=== PATIENT | male | born 1950 | race Caucasian/White ===

== ENCOUNTER 2023-11-23 23:10 | Emergency (ER) | payer OTHER, SELFPAY ==
[2023-11-23 23:15] VITALS: BP 169/85
--- NOTE | 2023-11-24 01:03 | ED.MUSCINJ ---
HPI-Injury
General
Chief Complaint: Musculo-Skeletal Complaint
Source: patient
Exam Limitations: none
Time Seen by Provider: 11/24/23 00:52
Travel History
Have you had any contact with someone who has COVID-19?: No
Do you have any symptoms of coronavirus? Fever > 100 degrees, chills, cough, shortness of breath, sore throat, loss of taste or smell, muscle aches, or headache?: No
History of Present Illness-Injury
Is this injury a work related problem?: No
Is pt an associate of [facility]?: No
Initial Injury comments:
This is a 73 year old male that comes in with c/o right shoulder pain. States shat he was gardening and worked on 4 beds. States that he was weeding and using a small trowel. States that he also lifted 6 bunches of Irises. Then tonight he was
twirling his spaghetti and that was when he started with pain. States that he didn't have pain after the gardening. Denies any falls, fever, chills, chest pain, SOB, nausea, vomiting, diarrhea, headache, dizziness.
Past History
Past History
ED Past Medical History: Hypercholesterolemia
ED Past Surgical History: Tonsilectomy and Urological (Lithotripsy )
Social History
Tobacco: Non-smoker
Alcohol: Daily (Wine 2)
Personal:
Living: with family
Review of Systems
Review of Systems
All Other Systems: ROS reviewed and negative except as documented in HPI and ROS
Constitutional: Reports no symptoms; Denies fever or chills
EENT: Reports no symptoms
Respiratory: Reports no symptoms; Denies cough or trouble breathing
Cardiac: Reports no symptoms; Denies chest pain
ABD/GI: Reports no symptoms; Denies abdominal pain, nausea, vomiting or diarrhea
: Reports no symptoms; Denies dysuria or frequency
Musculoskeletal: Reports joint pain (Right shoulder pain)
Skin: Reports no symptoms
Neurological: Reports no symptoms
Psychiatric: Reports no symptoms
Musculoskeletal Injury Exam
Musculoskeletal Injury Exam
Right Lateral Shoulder:
Pain with Movement?: Moderate
Tender to palpation?: Moderate
Soft tissue swelling?: None
External deformity and angulation?: None
Joint effusion?: None
Contusion?: None
Hematoma-local bleeding into tissue?: None
Strain- Sprain- Tear (Connective tissue injury)?: None
Crepitus with movement?: No
Joint instability?: No
Malalignment/deformity?: No
Range of motion: Limited (Due to pain)
Distal skin color and temperature: normal-warm & good color
Capillary Refill: normal
Normal distal neurovascular exam?: Yes
Phy Exam
General Physical Exam
General Presentation: well appearing and no apparent distress
General age: appears stated age
General Skin: warm and dry
General Habitus: elderly
General Mental: alert
General Hydration: appears well hydrated
ENT Exam
ENT Exam: TM's normal, pharynx normal and neck supple
Eye Exam
Eye Exam: EOMI
Cardiovascular Exam
Cardiovascular Exam: regular rate/rhythm and normal peripheral pulses
Musculoskeletal Exam
Musculoskeletal Exam: other (Right shoulder tenderness with palpation over the deltoid muscle. Limited ROM, Unable to abduct. Discomfort with flexion of the elbow. )
Skin Exam
Skin Exam: normal color, warm/dry, no rash and no petechia
Psychiatric Exam
Psychiatric Exam: normal mood/affect
Injury Course
Orders/Labs/Results
Orders:
Orders
11/23/23 23:19
Trauma Shoulder, Right CR [CR Shoulder, Trauma - Right] Urgent
Comment:
Reason For Exam: pain
11/24/23 01:02
Prednisone [Deltasone] 50 mg PO NOW STA
MDM/Problems Addressed
Differential Diagnosis Includes:
Bursitis, Muscle strain
MDM/Problems Addressed:
This is a 73 year old male that comes in with c/o right shoulder pain after gardening and twirling his Spaghetti.
Explained to patient that his X-ray is negative for any fracture or dislocation. However, patient is point tender over the deltoid. Will have patient alternate with Tylenol 1000mg every 6 hours and Ibuprofen and will place patient on a steroid for
the next 4 days. Offered patient a sling but he refused. Will have patient use ice and follow up with the it support specialist for further evaluation.
Chronic conditions affecting care:
NA
Acute Exacerbation and/or Progression of Chronic Illness:
NA
*Pulse Oximetry
Patient hypoxic: no
*EKG
Interpreted by ED Provider?: NA
Rate: EKG- N/A
*Sustainability Director Interpretation
Rate: Sustainability Director- N/A
*Critical Care Note
Total Time (30-74mins, 75-104mins- exclusive of procedures): Not Applicable
ED Attending Note
-
Portions of this chart may have been created with voice recognition software.� Occasional wrong word or��sound alike� substitutions may have occurred due to the inherent limitations of voice recognition software.
Discharge Plan
Departure
Patient Disposition: Home (Routine Discharge)
Date of Disposition: 11/24/23
Time of Disposition: 01:13
Patient with high blood pressure during this ER visit?: Yes
Condition: Good
Covid-19: Not Applicable
Discharge Problem:
Acute pain of right shoulder
Instructions: Using Cold for Pain, Shoulder pain, BLOOD PRESSURE
Prescriptions:
New
prednisone 20 mg tablet
40 mg PO DAILY Qty: 10 0RF
No Action
rosuvastatin 5 mg Tablet
5 mg PO DAILY
prednisone 50 mg tablet
50 mg PO DAILY Qty: 4 0RF
albuterol sulfate 90 mcg/actuation aerosol powdr breath activated
2 inh inhalation Q6H PRN (Reason: shortness of breath or wheezing) Qty: 1 0RF
Activity Restrictions/Additional Instructions:
As discussed, your X-ray is negative for any fracture or dislocation. You will need to rest the shoulder over the weekend. Please use ice to help with pain control. You may use Tylenol 1000mg every 6 hours and Ibuprofen 600mg every 6 hours with food
for pain. You have also had a prescription sent to your Pharmacy for a steroid. This will help decrease any inflammation. If you have not feeling any better by Monday you will need to see the it support specialist. IF YOU HAVE INCREASED PAIN,
SWELLING OR YOU HAVE ANY OTHER CONCERNS PLEASE RETURN TO THE EMERGENCY ROOM.
Interventions
Interventions:
*General Assessment Last Done: 11/23/23 23:15
*Nursing Disposition Last Done: 11/24/23 01:31
ED-Musculoskeletal Assessment Last Done: 11/24/23 01:31
Discharge Date and Time
Discharge Date/Time: 11/24/23 01:32
Print Language: FIJIAN
[2023-11-24] MEDS: DELTASONE 50 MG PO (01:14)
== END 2023-11-24 01:32 | disposition home or self-care (01) ==
LOC: EMR 23:10
PROVIDERS: EMERGENCY PHYSICIAN Emergency Medicine; FAMILY PHYSICIAN Family Medicine
DX: M25.511 Pain in right shoulder (principal); E78.00 Pure hypercholesterolemia, unspecified
CPT/HCPCS: 99283; 73030